=== PATIENT | male | born 1980 | race African-American/Black ===

== ENCOUNTER 2019-01-28 05:30 | Emergency (ER) | payer MEDICAID ==
[~2019-01-28] VITALS: Ht 180.3 cm; Wt 88.2 kg
[2019-01-28 05:32] VITALS: BP 132/83
[2019-01-28] MEDS ORDERED: METOCLOPRAMIDE 5 MG/ML, 2ML IM ONE (06:00)
[2019-01-28] MEDS ORDERED: KETOROLAC 30 MG/1 ML IM ONE (06:00)
[2019-01-28] MEDS ORDERED: DIPHENHYDRAMINE 25 MG CAPSULE PO ONE (06:00)
[2019-01-28] MEDS ORDERED: KETOROLAC 30 MG/1 ML ONE (06:02)
[2019-01-28] MEDS ORDERED: METOCLOPRAMIDE 5 MG/ML, 2ML ONE (06:02)
[2019-01-28] MEDS ORDERED: DIPHENHYDRAMINE 25 MG CAPSULE ONE (06:03)
== END 2019-01-28 06:46 | disposition home or self-care (01) ==
LOC: ED 06:35
DX: K02.9 Dental caries, unspecified (principal); G43.019 Migraine without aura, intractable, without status migrainosus; K08.89 Other specified disorders of teeth and supporting structures
CPT/HCPCS: 96372; 99283; J1885; J2765; Q0163